=== PATIENT | female | born 1945 | race Caucasian/White ===

== ENCOUNTER → 2016-10-25 | Outpatient (CLI) | payer OTHER ==
[~2016-10-25] MED LIST: FURO-93 PO; LANS15CA45 PO; LOSA50TA6 PO; SPIR50TA2 PO; STEROID TD
== END | disposition home or self-care (01) ==
LOC: CFH 14:26
PROVIDERS: ATTEND Internal Medicine
DX: J98.11 Atelectasis (principal); K44.9 Diaphragmatic hernia without obstruction or gangrene; R91.8 Other nonspecific abnormal finding of lung field; R91.1 Solitary pulmonary nodule
CPT/HCPCS: 71250